=== PATIENT | female | born 1955 | race Caucasian/White ===

== ENCOUNTER 2018-02-20 18:05 | Observation (INO) ==
--- NOTE | 2018-02-20 18:20 | Emergency Department Note ---
Disposition Clinical Impression: Weakness on right side of face, Somnolence, Weakness Disposition: Admitted As Inpatient Condition: Fair Referrals: Lulu Mac MD [Primary Care Provider] - Forms: ED Satisfaction Letter Time of Disposition: 22:00 Weakness HPI - General Stated complaint: High Glucose,Tired Time Seen by Provider: 02/20/18 18:11 Source: patient, family Mode of arrival: private vehicle Limitations: no limitations Nursing Notes Reviewed: Yes Vital Signs Reviewed: Yes - History of Present Illness HPI Narrative: Patient is a 62-year-old female with a past medical history of glaucoma hypothyroid and 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 Her granddaughters checked her blood sugar at home and it was 350. She ate about 1 PM tonight and was able to keep that down. She has no nausea vomiting or diarrhea, no abdominal pain, no headache, no pain of any kind. Her main complaints are lightheadedness dizziness and unsteady gait it has been going on 1 day. She has had no sick contacts no hot or cold flashes and no rashes. She had a normal bowel movement yesterday it was not black or bloody. She is not numb or tingling anywhere. She was able to take her medications today. She does have a history of migraines but she has not had a migraine for 4 or 5 months. She does not report any recent falls or trauma. She has not hit her head. She does report a concussion that she had in May when a piece of plate glass hit her head at work. - Related Data Home Medications Medication Instructions Recorded Confirmed Levothyroxine PO DAILY 02/20/18 Allergies Allergy/AdvReac Type Severity Reaction Status Date / Time Sulfa (Sulfonamide Allergy Hives Verified 03/27/17 18:48 Antibiotics) Constitutional: Reports: weakness. 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 Absent: tenderness - Chest Chest inspection: Present: normal inspection, symmetric chest wall rise - Respiratory Respiratory exam: Present: normal lung sounds bilaterally - Cardiovascular Cardiovascular exam: Present: regular rate, normal rhythm - Abdominal Exam Abdominal exam: Present: soft, Non-Tender. Absent: distention, guarding - Neurological Exam Neurological exam: Present: oriented X3 - Expanded Neurological Exam Cranial nerves: EOM function (II, III, IV, ): Normal, facial sensation (V): Normal, facial palsy (VII): Normal, spinal accessory function (XI): Normal, tongue deviation (XII): Normal Cerebellar function: finger to nose: Normal, heel to polanco: Normal Motor strength - LUE: 5/5 Motor strength - RUE: 5/5 Motor strength - LLE: 5/5 Motor strength - RLE: 5/5 Coma Scale Eye Opening: To Voice Coma Scale Motor Response: Obeys Commands Coma Scale Verbal Response: Oriented Coma Scale Total: 14 - Psychiatric Psychiatric exam: Present: flat affect - Skin Skin exam: Present: warm, dry, intact, other (dry skin present on UE and LE) Course Course Narrative: Patient presents with a blood sugar of 350 taken at home, and seems very tired on exam. Her neurological exam was pertinent for a right sided facial droop when smiling. She has a history of Marmolejo's palsy but that was on the left side of her face. Given her somewhat somnolent presentation and concern for multiple different causes, we will do a head CT without contrast, and lab work to include CBC BMP TSH. - Reevaluation(s) Reevaluation #1: CT was negative for a bleed or any acute processes. Patient continues to be somewhat tired stating that she continues to feel dizzy and lightheaded if she sits up. Her blood work was largely normal. Suspicion for an ischemic stroke remains high so she will need to be admitted for MRI and further workup with neurology consult. Vital Signs Temperature 98.2 F 02/20/18 18:21 Pulse Rate 81 02/20/18 18:21 Respiratory Rate 16 02/20/18 18:21 Blood Pressure 146/85 02/20/18 18:21 O2 Sat by Pulse Oximetry 97 02/20/18 18:21 Temperature 98.2 F 02/20/18 18:46 Pulse Rate 65 02/20/18 21:27 Respiratory Rate 12 02/20/18 21:27 Blood Pressure 120/52 02/20/18 21:27 O2 Sat by Pulse Oximetry 97 02/20/18 21:27 Oxygen Delivery Oxygen Delivery Room Air Weakness - MDM Narrative Medical decision making narrative: Patient presented somewhat somnolent without any acute findings on CT, with largely normal lab results. Her only acute finding was a right-sided facial droop when smiling. In order to fully exclude an ischemic stroke she will need to have an MRI. Neurology has been consult. While her vitals are living largely normal within the emergency department she did have a few seconds of what may have been an irregular rhythm as witnessed by monitor technician. Repeat EKG was similar to previous, and her rhythm returned to sinus. - Medical Records Medical records reviewed: Yes I reviewed the patient's medical records. - Lab Data Lab results reviewed: Yes I reviewed the patient's lab results. Result diagrams: 02/20/18 18:58 02/20/18 18:58 Lab Results 02/20/18 02/20/18 02/20/18 Range/Units 18:58 18:58 18:58 WBC 6.3 (4.3-11.1) K/mcL RBC 5.08 H (3.82-4.97) M/mcL Hgb 14.7 (11.5-15.4) g/dL Hct 43.9 (35.3-44.9) % MCV 86.4 (83.0-100.0) fL MCH 28.9 (28.0-33.3) pg MCHC 33.5 (31.6-35.5) g/dL RDW 12.9 (11.5-14.5) % Plt Count 192 (140-400) K/mcL MPV 9.9 (9.4-12.4) fL Immature Gran % 0.6 (0-4) % Seg Neutrophils % 54.5 % Lymphocytes % 32.3 % Monocytes % 8.4 % Eosinophils % 3.6 % Basophils % 0.6 % Neutrophils # 3.5 (1.6-8.9) K/mcL Lymphocytes # 2.1 (0.6-4.6) K/mcL Monocytes # 0.5 (0.0-1.3) K/mcL Eosinophils # 0.2 (0.0-0.6) K/mcL Basophils # 0.0 (0.0-0.2) K/mcL Sodium 139 (136-145) mEq/L Potassium 3.9 (3.5-5.1) mEq/L Chloride 108 H (98-107) mEq/L Carbon Dioxide 25 (23-29) mEq/L BUN 18 (8-23) mg/dL Creatinine 0.80 (0.60-1.20) mg/dL Est GFR ( Amer) > 60 (> 60) Est GFR (Non-Af Amer) > 60 (> 60) BUN/Creatinine Ratio 23 (6-26) Glucose 239 H (70-105) mg/dL Calculated Osmolality 298 (280-300) Calcium 9.0 (8.6-10.3) mg/dL Phosphorus 2.3 L (2.7-4.5) mg/dL Magnesium 2.2 (1.6-2.6) mg/dL Total Bilirubin 0.8 (0.3-1.0) mg/dL Direct Bilirubin 0.2 (0.0-0.2) mg/dL Indirect Bilirubin 0.6 (0.0-1.2) mg/dL AST 20 (13-39) Units/L ALT 26 (7-52) Units/L Alkaline Phosphatase 75 (34-104) Units/L Serum Total Protein 6.0 L (6.4-8.9) g/dL Albumin 3.8 (3.5-5.7) g/dL Globulin 2.2 L (2.4-3.5) g/dL Albumin/Globulin Ratio 1.7 (1.1-2.2) Lipase 76 (11-82) Units/L Beta-Hydroxybutyric Acd 0.14 (0.02-0.27) mmol/L TSH 2.279 (0.340-5.600) mcIU/mL Free T4 0.88 (0.70-2.00) ng/dl Urine Color (Yellow) Urine Clarity (Clear) Urine pH (5.0-8.0) pH Units Ur Specific [place] (1.010-1.025) Urine Protein (Neg-Trace) mg/dL Urine Glucose (UA) (Normal) mg/dL Urine Ketones (Negative) mg/dL Urine Blood (Negative) Urine Nitrite (Negative) Urine Bilirubin (Negative) Urine Urobilinogen (Normal) mg/dL Ur Leukocyte Esterase (Negative) Urine Microscopic RBC (0-3) per hpf Urine Microscopic WBC (0-3) per hpf Ur Squamous Epith Cells (None-Few) per lpf Urine Bacteria (None-Few) per hpf Hyaline Casts (None-Few) per lpf Ur Culture Indicated? (NO) 02/20/18 Range/Units 19:28 WBC (4.3-11.1) K/mcL RBC (3.82-4.97) M/mcL Hgb (11.5-15.4) g/dL Hct (35.3-44.9) % MCV (83.0-100.0) fL MCH (28.0-33.3) pg MCHC (31.6-35.5) g/dL RDW (11.5-14.5) % Plt Count (140-400) K/mcL MPV (9.4-12.4) fL Immature Gran % (0-4) % Seg Neutrophils % % Lymphocytes % % Monocytes % % Eosinophils % % Basophils % % Neutrophils # (1.6-8.9) K/mcL Lymphocytes # (0.6-4.6) K/mcL Monocytes # (0.0-1.3) K/mcL Eosinophils # (0.0-0.6) K/mcL Basophils # (0.0-0.2) K/mcL Sodium (136-145) mEq/L Potassium (3.5-5.1) mEq/L Chloride (98-107) mEq/L Carbon Dioxide (23-29) mEq/L BUN (8-23) mg/dL Creatinine (0.60-1.20) mg/dL Est GFR ( Amer) (> 60) Est GFR (Non-Af Amer) (> 60) BUN/Creatinine Ratio (6-26) Glucose (70-105) mg/dL Calculated Osmolality (280-300) Calcium (8.6-10.3) mg/dL Phosphorus (2.7-4.5) mg/dL Magnesium (1.6-2.6) mg/dL Total Bilirubin (0.3-1.0) mg/dL Direct Bilirubin (0.0-0.2) mg/dL Indirect Bilirubin (0.0-1.2) mg/dL AST (13-39) Units/L ALT (7-52) Units/L Alkaline Phosphatase (34-104) Units/L Serum Total Protein (6.4-8.9) g/dL Albumin (3.5-5.7) g/dL Globulin (2.4-3.5) g/dL Albumin/Globulin Ratio (1.1-2.2) Lipase (11-82) Units/L Beta-Hydroxybutyric Acd (0.02-0.27) mmol/L TSH (0.340-5.600) mcIU/mL Free T4 (0.70-2.00) ng/dl Urine Color Yellow (Yellow) Urine Clarity Cloudy A (Clear) Urine pH 6.5 (5.0-8.0) pH Units Ur Specific [place] > 1.030 H (1.010-1.025) Urine Protein Trace (Neg-Trace) mg/dL Urine Glucose (UA) 500 H (Normal) mg/dL Urine Ketones Negative (Negative) mg/dL Urine Blood Trace H (Negative) Urine Nitrite Negative (Negative) Urine Bilirubin Negative (Negative) Urine Urobilinogen Normal (Normal) mg/dL Ur Leukocyte Esterase Moderate H (Negative) Urine Microscopic RBC 5-15 H (0-3) per hpf Urine Microscopic WBC 50-100 H (0-3) per hpf Ur Squamous Epith Cells Many H (None-Few) per lpf Urine Bacteria Few (None-Few) per hpf Hyaline Casts None Seen (None-Few) per lpf Ur Culture Indicated? NO. A (NO) - Radiology Data Radiology results reviewed: Yes I reviewed the patient's radiology results. Head CT 02/20/18 18:48 IMPRESSION: No CT evidence for acute intracranial abnormality. D/ / Boyd Green / Boyd Green Interpreting Provider: Boyd Green Chest X-Ray 02/20/18 18:58 IMPRESSION: No significant findings in the chest. D/ / Fausto Phoenix MD / Fausto Phoenix MD Interpreting Provider: Fausto Phoenix MD - EKG Data EKG attestation: Yes I reviewed and interpreted this EKG. EKG results narrative: 1916: Rate 71 bpm, rhythm sinus, left axis. MI, QT intervals WNL. No evidence of ST elevation or depression. 2125: Rate 66, rhythm sinus, left axis. Print says prolonged QT, but is 421 when calculated. No evidence of ST depression or elevation. Attestation Statement - Attestation Attestation: I, Kodak Ramsey DO, examined this patient [id number] and my medical decision-making was reviewed with Dr. Korina Lei, Resident Physician. I agree with the documented findings, disposition and treatment plan as described except to the extent set forth below. Please see my progress notes for details.
[2018-02-20] MEDS ORDERED: 0.9 % Sodium Chloride 1,000 ML IVC ONE (18:58)
[2018-02-20] MEDS ORDERED: Ondansetron 4 MG/2 ML VIAL IVP ONE (18:59)
--- NOTE | 2018-02-20 19:14 | Emergency Department Note ---
Disposition Clinical Impression: Weakness on right side of face, Somnolence, Weakness Disposition: Admitted As Inpatient Condition: Fair Referrals: Lulu Mac MD [Primary Care Provider] - Time of Disposition: 21:32 General Adult HPI - General Chief complaint: ED Weakness Stated complaint: High Glucose,Tired Time Seen by Provider: 02/20/18 18:11 Source: patient, family Limitations: no limitations - History of Present Illness Pain Scale: 0 - Related Data Home Medications Medication Instructions Recorded Confirmed Timolol Maleate 0.5% 1 drop BOTH EYES DAILY 06/20/15 03/27/17 Cyclobenzaprine [Flexeril] 10 mg PO PRN PRN 03/27/17 03/27/17 Previous Rx's Medication Instructions Recorded traMADol [Ultram] 50 mg PO Q6HR PRN #14 tablet 06/20/15 Ciprofloxacin [Cipro] 500 mg PO BID #14 tablet 03/27/17 Phenazopyridine HCl [Pyridium] 200 mg PO TID #6 tab 03/27/17 Allergies Allergy/AdvReac Type Severity Reaction Status Date / Time Sulfa (Sulfonamide Allergy Hives Verified 03/27/17 18:48 Antibiotics) Constitutional: Reports: weakness. 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 - Social History Smoking Status: 2nd Hand Smoke Exposure Smokeless Tobacco Status: No Alcohol use: Reports: none Drug use: Reports: none Physical Exam - General Limitations: no limitations General appearance: lethargic, obese, other (has difficulty keeping her eyes open) Course Vital Signs Temperature 98.2 F 02/20/18 18:21 Pulse Rate 81 02/20/18 18:21 Respiratory Rate 16 02/20/18 18:21 Blood Pressure 146/85 02/20/18 18:21 O2 Sat by Pulse Oximetry 97 02/20/18 18:21 Temperature 98.2 F 02/20/18 18:46 Pulse Rate 65 02/20/18 21:27 Respiratory Rate 12 02/20/18 21:27 Blood Pressure 120/52 02/20/18 21:27 O2 Sat by Pulse Oximetry 97 02/20/18 21:27 Oxygen Delivery Oxygen Delivery Room Air Medical Decision Making - Lab Data Result diagrams: 02/20/18 18:58 02/20/18 18:58 Lab Results 02/20/18 02/20/18 02/20/18 Range/Units 18:58 18:58 18:58 WBC 6.3 (4.3-11.1) K/mcL RBC 5.08 H (3.82-4.97) M/mcL Hgb 14.7 (11.5-15.4) g/dL Hct 43.9 (35.3-44.9) % MCV 86.4 (83.0-100.0) fL MCH 28.9 (28.0-33.3) pg MCHC 33.5 (31.6-35.5) g/dL RDW 12.9 (11.5-14.5) % Plt Count 192 (140-400) K/mcL MPV 9.9 (9.4-12.4) fL Immature Gran % 0.6 (0-4) % Seg Neutrophils % 54.5 % Lymphocytes % 32.3 % Monocytes % 8.4 % Eosinophils % 3.6 % Basophils % 0.6 % Neutrophils # 3.5 (1.6-8.9) K/mcL Lymphocytes # 2.1 (0.6-4.6) K/mcL Monocytes # 0.5 (0.0-1.3) K/mcL Eosinophils # 0.2 (0.0-0.6) K/mcL Basophils # 0.0 (0.0-0.2) K/mcL Sodium 139 (136-145) mEq/L Potassium 3.9 (3.5-5.1) mEq/L Chloride 108 H (98-107) mEq/L Carbon Dioxide 25 (23-29) mEq/L BUN 18 (8-23) mg/dL Creatinine 0.80 (0.60-1.20) mg/dL Est GFR ( Amer) > 60 (> 60) Est GFR (Non-Af Amer) > 60 (> 60) BUN/Creatinine Ratio 23 (6-26) Glucose 239 H (70-105) mg/dL Calculated Osmolality 298 (280-300) Calcium 9.0 (8.6-10.3) mg/dL Phosphorus 2.3 L (2.7-4.5) mg/dL Magnesium 2.2 (1.6-2.6) mg/dL Total Bilirubin 0.8 (0.3-1.0) mg/dL Direct Bilirubin 0.2 (0.0-0.2) mg/dL Indirect Bilirubin 0.6 (0.0-1.2) mg/dL AST 20 (13-39) Units/L ALT 26 (7-52) Units/L Alkaline Phosphatase 75 (34-104) Units/L Serum Total Protein 6.0 L (6.4-8.9) g/dL Albumin 3.8 (3.5-5.7) g/dL Globulin 2.2 L (2.4-3.5) g/dL Albumin/Globulin Ratio 1.7 (1.1-2.2) Lipase 76 (11-82) Units/L Beta-Hydroxybutyric Acd 0.14 (0.02-0.27) mmol/L TSH 2.279 (0.340-5.600) mcIU/mL Free T4 0.88 (0.70-2.00) ng/dl Urine Color (Yellow) Urine Clarity (Clear) Urine pH (5.0-8.0) pH Units Ur Specific [place] (1.010-1.025) Urine Protein (Neg-Trace) mg/dL Urine Glucose (UA) (Normal) mg/dL Urine Ketones (Negative) mg/dL Urine Blood (Negative) Urine Nitrite (Negative) Urine Bilirubin (Negative) Urine Urobilinogen (Normal) mg/dL Ur Leukocyte Esterase (Negative) Urine Microscopic RBC (0-3) per hpf Urine Microscopic WBC (0-3) per hpf Ur Squamous Epith Cells (None-Few) per lpf Urine Bacteria (None-Few) per hpf Hyaline Casts (None-Few) per lpf Ur Culture Indicated? (NO) 02/20/18 Range/Units 19:28 WBC (4.3-11.1) K/mcL RBC (3.82-4.97) M/mcL Hgb (11.5-15.4) g/dL Hct (35.3-44.9) % MCV (83.0-100.0) fL MCH (28.0-33.3) pg MCHC (31.6-35.5) g/dL RDW (11.5-14.5) % Plt Count (140-400) K/mcL MPV (9.4-12.4) fL Immature Gran % (0-4) % Seg Neutrophils % % Lymphocytes % % Monocytes % % Eosinophils % % Basophils % % Neutrophils # (1.6-8.9) K/mcL Lymphocytes # (0.6-4.6) K/mcL Monocytes # (0.0-1.3) K/mcL Eosinophils # (0.0-0.6) K/mcL Basophils # (0.0-0.2) K/mcL Sodium (136-145) mEq/L Potassium (3.5-5.1) mEq/L Chloride (98-107) mEq/L Carbon Dioxide (23-29) mEq/L BUN (8-23) mg/dL Creatinine (0.60-1.20) mg/dL Est GFR ( Amer) (> 60) Est GFR (Non-Af Amer) (> 60) BUN/Creatinine Ratio (6-26) Glucose (70-105) mg/dL Calculated Osmolality (280-300) Calcium (8.6-10.3) mg/dL Phosphorus (2.7-4.5) mg/dL Magnesium (1.6-2.6) mg/dL Total Bilirubin (0.3-1.0) mg/dL Direct Bilirubin (0.0-0.2) mg/dL Indirect Bilirubin (0.0-1.2) mg/dL AST (13-39) Units/L ALT (7-52) Units/L Alkaline Phosphatase (34-104) Units/L Serum Total Protein (6.4-8.9) g/dL Albumin (3.5-5.7) g/dL Globulin (2.4-3.5) g/dL Albumin/Globulin Ratio (1.1-2.2) Lipase (11-82) Units/L Beta-Hydroxybutyric Acd (0.02-0.27) mmol/L TSH (0.340-5.600) mcIU/mL Free T4 (0.70-2.00) ng/dl Urine Color Yellow (Yellow) Urine Clarity Cloudy A (Clear) Urine pH 6.5 (5.0-8.0) pH Units Ur Specific [place] > 1.030 H (1.010-1.025) Urine Protein Trace (Neg-Trace) mg/dL Urine Glucose (UA) 500 H (Normal) mg/dL Urine Ketones Negative (Negative) mg/dL Urine Blood Trace H (Negative) Urine Nitrite Negative (Negative) Urine Bilirubin Negative (Negative) Urine Urobilinogen Normal (Normal) mg/dL Ur Leukocyte Esterase Moderate H (Negative) Urine Microscopic RBC 5-15 H (0-3) per hpf Urine Microscopic WBC 50-100 H (0-3) per hpf Ur Squamous Epith Cells Many H (None-Few) per lpf Urine Bacteria Few (None-Few) per hpf Hyaline Casts None Seen (None-Few) per lpf Ur Culture Indicated? NO. A (NO) Attestation Statement - Attestation Attestation: I, Kodak Ramsey DO, examined this patient [id number] and my medical decision-making was reviewed with Dr. Korina Lei, Resident Physician. I agree with the documented findings, disposition and treatment plan as described except to the extent set forth below. Please see my progress notes for details. 62-year-old female presents emergency room for evaluation of somnolence and elevated glucose. Patient has had symptoms on and off over the last 24 hours. She has no specific history of stroke or diabetes according to the patient and family. She has a history of DVTs but is not currently on a blood thinners. Currently she is denying fevers chills chest pain shortness of breath headache vision changes nausea vomiting or diarrhea. Her main complaint is feeling like she just wants to sleep. Accu-Chek at home is greater than 350. Bedside point of care Accu-Chek is ordered at this time. Patient is concerning for neurologic issues versus infectious etiology. CT imaging of the head chest x- ray urinalysis along with CBC chemistry troponin and BNP and thyroid function testing along with VBG and ketones were collected this point. Single air-fluid and nausea medication will be provided. Patient does not have any visible signs of traumatic injury. Her physical exam does show some right-sided facial droop. She does have a history of Marmolejo's palsy that but that was on the left side of her face. Her pupils are equal round reactive extraocular muscles are intact. Oropharynx is patent her trachea is midline. Lungs are clear heart is regular. Abdomen is soft nontender nondistended. She has no asymmetry or swelling to lower extremities and has no pitting edema. Disposition will most likely be admission wants a full workup and treatment course have been reviewed and established here in the emergency room. We will continue to monitor closely. See detailed documentation of the physical exam, medical intervention , medical decision-making and disposition in the resident physician's note. No critical care provider the patient's treatment course at this time. [address] scan of the head. No acute signs of bleed or inflammation. Labs are unremarkable this time. Patient is still somnolent appears to be at baseline answering questions appropriately. She does not have any visible neurologic deficits outside of a slight facial asymmetry on the right side. Patient's NIH stroke scale is 1. She does not require any emergent or acute intervention and she is not currently a candidate based on the unknown time frame of the onset of the symptoms. Patient will be admitted for TIA like symptoms as well as completion of a neurologic evaluation. The remainder of her laboratory workup with concern for infectious etiology is unremarkable. Patient is otherwise clinically stable addition process to be completed. 2125 Patient was discussed with the hospitalist Dr. Brownlee. No other recommendations or concerns at this time. Neurology was contacted at the request and aspirin was given. Patient will be admitted for observation symptomatically control and neurology consultation. Patient otherwise clinical stable with no changes in his presentation this time. We will continue monitoring in emergency room until admission processes is completed repeat EKG that was requested by the hospitalist showed a QTC of 534 but was calculated by myself the QTC appears to be 421 consistent with the patient's previous EKG. The morphology and presentation appears to be identical. No other concerns or issues are noted. Patient will be admitted.
[2018-02-20 19:15] LABS: Basophils % 0.6 %; Eosinophils # 0.2 K/mcL (0.0-0.6); Eosinophils % 3.6 %; Hematocrit 43.9 % (35.3-44.9); Hemoglobin 14.7 g/dL (11.5-15.4); Immature Granulocytes % 0.6 % (0-4); Lymphocytes # 2.1 K/mcL (0.6-4.6); Lymphocytes % 32.3 %; Mean Corpuscular HGB Conc 33.5 g/dL (31.6-35.5); Mean Corpuscular Hemoglobin 28.9 pg (28.0-33.3); Mean Corpuscular Volume 86.4 fL (83.0-100.0); Mean Platelet Volume 9.9 fL (9.4-12.4); Monocytes # 0.5 K/mcL (0.0-1.3); Monocytes % 8.4 %; Neutrophils # 3.5 K/mcL (1.6-8.9); Platelet Count 192 K/mcL (140-400); Red Blood Count 5.08 M/mcL (3.82-4.97); Red Cell Distribution Width 12.9 % (11.5-14.5); Segmented Neutrophils % 54.5 %
[2018-02-20 19:42] LABS: Bilirubin,Urine Negative (Negative); Blood,Urine Trace (Negative); Clarity,Urine Cloudy (Clear); Color,Urine Yellow (Yellow); Glucose,Urine (UA) 500 mg/dL (Normal); Ketones,Urine Negative (Negative); Leukocyte Esterase,Urine Moderate (Negative); Nitrite,Urine Negative (Negative); PH,Urine 6.5 pH Units (5.0-8.0); Protein,Urine Trace mg/dL (Neg-Trace); Specific Gravity,Urine > 1.030 (1.010-1.025); Urobilinogen,Urine Normal (Normal)
[2018-02-20 19:47] LABS: Bacteria,Urine Few per hpf (None-Few); Hyaline Casts,Urine None Seen per lpf (None-Few); Squamous Epithelial Cell,Urine Many per lpf (None-Few); WBC,Urine 50-100 per hpf (0-3)
[2018-02-20 19:54] LABS: Alanine Aminotransferase 26 Units/L (7-52); Albumin 3.8 g/dL (3.5-5.7); Albumin/Globulin Ratio 1.7 (1.1-2.2); Alkaline Phosphatase 75 Units/L (34-104); Aspartate Amino Transferase 20 Units/L (13-39); BUN/Creatinine Ratio 23 (6-26); Bilirubin,Direct 0.2 mg/dL (0.0-0.2); Bilirubin,Indirect 0.6 mg/dL (0.0-1.2); Bilirubin,Total 0.8 mg/dL (0.3-1.0); Blood Urea Nitrogen 18 mg/dL (8-23); Carbon Dioxide 25 mEq/L (23-29); Chloride 108 mEq/L (98-107); Globulin 2.2 g/dL (2.4-3.5); Glucose 239 mg/dL (70-105); Lipase 76 Units/L (11-82); Magnesium 2.2 mg/dL (1.6-2.6); Osmolality,Calculated 298 (280-300); Phosphorous 2.3 mg/dL (2.7-4.5); Potassium 3.9 mEq/L (3.5-5.1); Sodium 139 mEq/L (136-145); eGFR For Non-African Americans > 60 (> 60)
[2018-02-20 20:07] LABS: Thyroid Stimulating Hormone 2.279 mcIU/mL (0.340-5.600)
[2018-02-20] MEDS ORDERED: Aspirin 325 MG TABLET PO ONE (20:55)
[2018-02-20] MEDS ORDERED: Acetaminophen 325 MG TABLET PO PRN (22:29)
[2018-02-20] MEDS ORDERED: Naloxone 0.4 MG/ML INJ IVP PRN (22:29)
[2018-02-20] MEDS ORDERED: traMADol 50 MG TABLET PO PRN (22:29)
[2018-02-20] MEDS ORDERED: Dextrose Gel 15 GM/37.5 ML TUBE PO PRN ×2 (22:31)
[2018-02-20] MEDS ORDERED: *HR* Dextrose 50 % in Water (Syg) 50 ML SYRINGE IVP PRN (22:31)
[2018-02-20] MEDS ORDERED: D5% in Water 1,000 ML IVC PRN (22:31)
--- NOTE | 2018-02-20 23:39 | Internal Med History&Physical ---
<Lucas Cooper - Last Filed: 02/20/18 23:33> Date of Encounter: 02/20/18 Time of Encounter: 23:34 Internal Medicine - H&P: HPI Chief complaint: Somnolence Admitted From: Emergency Dept Plans for Post Hospital Care: Home History of present illness: Ms. Tinsley is a 62 year old female with history of hypothyroidism, migraines, diet controlled diabetes who presents with a chief complaint of feeling tired and somnolent. Daughter states that yesterday the patient appeared to have some right-sided facial droop that is new for her. She describes it as the corner of her lip being "stuck". Prior to this she was normal. Today this facial droop is better although the daughter feels that it is still present however much improved. Today the patient states that she just felt extremely tired all day. She states that she checked her blood sugar today and it was around 350. She reports being told that she was diabetic previously and had been on metformin however she states her PCP stopped this due to diarrhea and she is currently attempting to control her diabetes with diet. She states that she occasionally checks her blood sugar and is usually in the 200s. She also reports a mild headache behind her left eye. She states that this is the location that she usually gets her migraines and but this feels different than her usual migraines. She states she usually aborts her migraines with tramadol. She denies any fever, chills, chest pain, shortness of breath, vision changes, abdominal pain, nausea, vomiting, diarrhea, dysuria, lower extremity swelling, weakness, numbness, tingling. Past Med Surg Social Fam HX - Past Medical History Medical history: non-contributory Additional medical history: bells palsy, glaucoma Psychiatric history: anxiety - Past Surgical History Surgical History: non-contributory, Additional surgical history: tubal , glaucoma sx - Social History Smoking Status: 2nd Hand Smoke Exposure Smokeless Tobacco Status: No Alcohol use: none Drug use: none - Family History Mother Living Status: Brother Hx Family Cardiac Disorders: Yes ( 6 brothers have heart disease) Internal Medicine - H&P: Meds Levothyroxine PO DAILY 02/20/18 [History] Timolol Maleate 0.5% [Timolol Maleate 0.5%] 1 drop BOTH EYES HS 02/20/18 [ History] 3 Allergy/AdvReac Type Severity Reaction Status Date / Time Sulfa (Sulfonamide Allergy Hives Verified 03/27/17 18:48 Antibiotics) All Systems PM: A 10-system review of systems was performed and is negative for pertinent findings except as documented above in the HPI. - Constitutional Constitutional: lethargy, no chills, no fever(s) - EENT Eyes: no change in vision Nose, mouth and throat: no sinus pain, no sinus pressure, no sore throat - Cardiovascular Cardiovascular ROS IM: no chest pain, no dyspnea, no irregular heart rhythm, no lightheadedness, no orthopnea - Respiratory Respiratory: no cough, no dyspnea, no hemoptysis - Gastrointestinal Gastrointestinal: no abdominal pain, no diarrhea, no nausea, no vomiting - Genitourinary Genitourinary: no dysuria - Musculoskeletal Musculoskeletal ROS IM: no numbness, no tingling - Integumentary Integumentary IM: no erythema, no rash - Neurological Neurological ROS: headache(s), other (facial droop), no behavioral changes, no confusion, no dizziness, no focal weakness, no loss of vision, no memory loss, no other visual disturbances - Psychiatric Psychiatric: no anxiety, no confusion, no depression - Endocrine Endocrine IM: no polydipsia, no polyuria - Hematologic/Lymphatic Hematologic/Lymphatic: no easy bleeding, no easy bruising - Allergic/Immunologic Allergic/Immunologic: no tongue swelling, no throat swelling - Constitutional Vitals: Temp Pulse Resp BP Pulse Ox 97.8 F 60 16 121/68 96 02/20/18 22:38 02/20/18 22:38 02/20/18 22:38 02/20/18 22:38 02/20/18 22:38 General appearance: Present: A&O X 3, no acute distress Exam: SLightly lethargic but is easily arousable and able to carry on a full conversation without difficulty. - Head Head exam: Present: atraumatic, normal inspection, normocephalic - Eye Eye exam: Present: EOMI, PERRL Pupils: Present: PERRL - ENT ENT exam: Present: mucous membranes moist, normal oropharynx - Neck Neck exam general surgery: Present: full ROM. Absent: nuchal rigidity - Respiratory Respiratory exam: Present: CTAB. Absent: rales, rhonchi, wheezes, tachypnea - Cardiovascular Cardiovascular exam: Present: RRR. Absent: diastolic murmur, irregular rhythm, systolic murmur - GI/Abdominal GI/Abdominal exam: Present: normal bowel sounds, soft. Absent: distended, hepatomegaly, tenderness - Extremities Exam Extremities exam: Present: warm, radial pulses palpable and symmetrical. Absent : pedal edema, tenderness - Neurological Exam Neurological exam: Present: alert, CN II-XII intact, oriented X3, reflexes normal, no focal deficits, strengths equal and symetr throughout. Absent: motor sensory deficit, pronater drift, facial droop (I did not appreciate any facial droop however daughter feels patient has slight facial droop), speech deficit - Psychiatric Psychiatric exam: Present: normal affect, normal mood - Skin Skin exam: Present: dry, intact, warm Internal Med - H&P Results - Labs CBC & Chem 7: 02/20/18 18:58 02/20/18 18:58 - Assessment and plan (1) Somnolence Current Visit: Yes Status: Acute Assessment and plan: Patient reports feeling somewhat tired but is easily arousable and able to carry on a full conversation. She is alert and oriented 3 and is able to give a complete history. Facial droop is also reported yesterday per family and they feel this is improving. I do not appreciate any focal neurologic deficits however given her symptoms concern for neurologic process including TIA/CVA. We will place the patient on telemetry, check echo, carotid duplex, brain MRI. Patient was loaded with 325 mg aspirin, will continue 81 mg aspirin daily. On previous lipid panel patient was noted to have an elevated LDL and a decreased HDL, will start statin and check lipid panel in the morning. Neurology consult pending. (2) Diabetes mellitus Current Visit: No Status: Chronic Assessment and plan: Patient reports being told she is prediabetic and states that this is controlled with diet. She had been on metformin in the past but this was discontinued due to diarrhea. At home the patient reports she had a blood sugar of 350 today. Blood sugar was 239 upon arrival. I suspect that the patient has uncontrolled diabetes. We will place on low-dose sliding scale while in the hospital and check a hemoglobin A1c in the morning. Qualifiers: Diabetes mellitus type: type 2 Diabetes mellitus skilled nursing insulin use: without skilled nursing use Diabetes mellitus complication status: without complication Qualified Code(s): E11.9 - Type 2 diabetes mellitus without complications (3) Hypothyroidism Current Visit: Yes Status: Acute Assessment and plan: Patient on levothyroxine at home, unsure of dose. TSH and free T4 within normal limits. Levothyroxine dose will need to be confirmed with pharmacy in the morning and restarted. Qualifiers: Hypothyroidism type: unspecified Qualified Code(s): E03.9 - Hypothyroidism , unspecified (4) DVT prophylaxis Current Visit: No Status: Acute Assessment and plan: Lovenox 40 mg subcutaneous daily. (5) Migraine Current Visit: Yes Status: Chronic Assessment and plan: Patient reports history of migraines and presently has a mild headache behind her left eye which she states is where she normally gets her migraines however she does not feel like this is a migraine. She uses tramadol at home to abort her migraines. This is been made available to her on a when necessary basis. Complex migraine could explain the patient's symptoms however will rule out CVA as discussed above. Neurology consult pending. Qualifiers: Migraine type: with aura Status migrainosus presence: without status migrainosus Intractability: not intractable Qualified Code(s): G43.109 - Migraine with aura, not intractable, without status migrainosus - Time Spent With Patient Total time spent is greater than 50% in coordination of care (as documented) at patient's floor/unit and/or counseling patient: <Matias Brownlee - Last Filed: 02/21/18 08:40> Date of Encounter: 02/21/18 Internal Medicine - H&P: HPI History of present illness: Ms. Tinsley is a 62 year old female All Systems PM: A 10-system review of systems was performed and is negative for pertinent findings except as documented above in the HPI. - Constitutional Vitals: Temp Pulse Resp BP Pulse Ox 97.5 F L 69 18 101/65 95 02/21/18 06:57 02/21/18 06:57 02/21/18 06:57 02/21/18 06:57 02/21/18 06:57 Internal Med - H&P Results - Labs CBC & Chem 7: 02/21/18 04:34 02/21/18 04:34 Labs: Short CBC 02/21/18 Range/Units 04:34 WBC 6.6 (4.3-11.1) K/mcL Hgb 13.5 (11.5-15.4) g/dL Hct 39.8 (35.3-44.9) % Plt Count 182 (140-400) K/mcL Neutrophils # 3.3 (1.6-8.9) K/mcL BMP 02/21/18 04:34 Sodium 141 Potassium 3.8 Chloride 108 H Carbon Dioxide 26 BUN 13 Creatinine 0.63 Glucose 126 H Calcium 8.8 - Assessment and plan (1) DVT prophylaxis Current Visit: No Status: Acute (2) Diabetes mellitus Current Visit: No Status: Chronic Qualifiers: Diabetes mellitus type: type 2 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 skilled 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 use Diabetes mellitus complication status: without complication Qualified Code(s): E11.9 - Type 2 diabetes mellitus without complications (3) Somnolence Current Visit: Yes Status: Acute (4) Hypothyroidism Current Visit: Yes Status: Acute Qualifiers: Hypothyroidism type: unspecified Qualified Code(s): E03.9 - Hypothyroidism , unspecified (5) Migraine Current Visit: Yes Status: Chronic Qualifiers: Migraine type: with aura Status migrainosus presence: without status migrainosus Intractability: not intractable Qualified Code(s): G43.109 - Migraine with aura, not intractable, without status migrainosus - Time Spent With Patient Total time spent is greater than 50% in coordination of care (as documented) at patient's floor/unit and/or counseling patient: - Attending Attestation Patient seen and examined on 02/21/18. Case discussed with resident. Agree with assessment and plan.
[2018-02-21] MEDS: Insulin LISPRO 300 UNITS/3 ML VIAL SQ SCH ×5 (01:30→21:17)
[2018-02-21] MEDS ORDERED: Naloxone 0.4 MG/ML INJ IVP PRN ×2 (03:19→03:21)
[2018-02-21 05:17] LABS: Basophils % 0.6 %; Eosinophils # 0.3 K/mcL (0.0-0.6); Eosinophils % 4.1 %; Hematocrit 39.8 % (35.3-44.9); Hemoglobin 13.5 g/dL (11.5-15.4); Immature Granulocytes % 0.5 % (0-4); Lymphocytes # 2.6 K/mcL (0.6-4.6); Lymphocytes % 38.6 %; Mean Corpuscular HGB Conc 33.9 g/dL (31.6-35.5); Mean Corpuscular Hemoglobin 29.1 pg (28.0-33.3); Mean Corpuscular Volume 85.8 fL (83.0-100.0); Monocytes # 0.5 K/mcL (0.0-1.3); Monocytes % 6.8 %; Neutrophils # 3.3 K/mcL (1.6-8.9); Platelet Count 182 K/mcL (140-400); Red Blood Count 4.64 M/mcL (3.82-4.97); Red Cell Distribution Width 13.2 % (11.5-14.5); Segmented Neutrophils % 49.4 %
[2018-02-21 05:34] LABS: BUN/Creatinine Ratio 21 (6-26); Blood Urea Nitrogen 13 mg/dL (8-23); Calcium 8.8 mg/dL (8.6-10.3); Carbon Dioxide 26 mEq/L (23-29); Chloride 108 mEq/L (98-107); Chol/HDL Ratio 5.7 (0-4.9); Cholesterol 189 mg/dL (< 200); Glucose 126 mg/dL (70-105); HDL Cholesterol 33 mg/dL (40-59); LDL Cholesterol,Calculated 127 mg/dL (0-99); Magnesium 2.1 mg/dL (1.6-2.6); Osmolality,Calculated 294 (280-300); Potassium 3.8 mEq/L (3.5-5.1); Sodium 141 mEq/L (136-145); Triglycerides 144 mg/dL (< 150); eGFR For Non-African Americans > 60 (> 60)
[2018-02-21] MEDS: *HR* Enoxaparin 40 MG/0.4 ML SYRINGE SQ SCH (06:10)
[2018-02-21 07:04] LABS: Estimated Average Glucose 174 mg/dl; Hemoglobin A1C 7.7 %
[2018-02-21] MEDS: Aspirin 81 MG TAB.CHEW PO SCH (08:53)
--- NOTE | 2018-02-21 09:49 | Neurology - Consult Note ---
<KikoVladimir norman N - Last Filed: 02/21/18 09:35> Date of Encounter: 02/21/18 Time of Encounter: 09:36 Assessment and Plan (1) Weakness on right side of face Status: Acute Patient was admitted to the hospital with concerns of a possible TIA as records indicate there was a transient right sided facial droop. Patient denies any history of drooping, stating that her only symptoms were increased somnolence and mental fatigue that have resolved. She was admitted and an inpatient stroke work up was initiated. - It is possible that the patient's symptoms are attributable to a TIA; however , a complex migraine can not be excluded - Will follow up with MRI, carotid dopplers, and echo - Recommend continuing 81mg aspirin and 40mg atorvastatin as outpatient - Recommend f/u with PCP for diabetes management as patient's A1c was 7.7 (2) Somnolence Status: Acute Patient reports a one day history of increased fatigue and daytime somnolence This was acute and has not occured before Blood glucose was 350 during time of event, which patient states is markedly high for her and attributes it as the cause of her symptoms. Has resolved and patient feels improved today. TSH and free T4 within normal limits. It is possible these symptoms may be secondary to a TIA vs. complex migraine. Will follow up with stroke workup and recommend ASA, statin, and diabetes management as outpatient to reduce risk of future cerebrovascular events. (3) Migraine Status: Chronic Patient has a history of migraines Denies any history of complex migraines Had a slight frontal headache yesterday, but that has resolved and she states that it was not as severe as her migraines (4) Hyperlipidemia Status: Acute elevated LDL initiate statin therapy to reduce risk of TIA/stroke (5) Diabetes mellitus Status: Chronic Patient was previously on metformin approximately one year ago. Metformin discontinued due to adverse reaction of diarrhea. Has been managed with diet. A1c 7.7 Recommend f/u with PCP for diabetes management (6) DVT prophylaxis Status: Acute Patient has history of thrombophlebitis with previous DVTs from oral contraceptive pill use Positive family history of DVTs and PEs, with one sibling being diagnosed with Factor V Leiden mutation Patient states she does not have Factor V mutation, but can not recall what she was previously diagnosed with lovenox 40 SubQ History of Present Illness Chief complaint: Possible TIA HPI: Ms. Tinsley is a 62 year old female who was admitted to [facility] for possible TIA like symptoms. History was collected from the patient, she states that the previous day she woke up feeling increasingly tired and had trouble staying awake. She also felt "foggy" and had trouble with cognition. These symptoms have resolved since the episode yesterday. When the patient had these symptoms she checked her blood glucose level and it was at 350, which the patient states is markedly above her normal readings. She is a known diabetic but is managing her diabetes with diet. She also has a history of migraines, and reported a mild headache yesterday, but it was far lower in severity than her usual migraines. The patient denies noticing any facial droop, slurred speech, confusion, vision changes, weakness, numbness, or parasthesias at any time. She also denies any recent illnesses, fevers, chills, chest pain, SOB, abdominal pain, or diarrhea. Today she states that all of her symptoms of fogginess and feeling tired have resolved. Past Med Surg Social Fam HX - Past Medical History Medical history: non-contributory Additional medical history: bells palsy, glaucoma Psychiatric history: anxiety - Past Surgical History Surgical History: non-contributory, Additional surgical history: tubal , glaucoma sx - Social History Smoking Status: 2nd Hand Smoke Exposure Smokeless Tobacco Status: No Alcohol use: none Drug use: none - Family History Mother Living Status: Brother Hx Family Cardiac Disorders: Yes ( 6 brothers have heart disease) Medications and Allergies Levothyroxine Sodium [Tirosint] 25 mcg PO DAILY 02/20/18 [History] Timolol Maleate 0.5% 1 drop BOTH EYES HS 02/20/18 [History] Aspirin 81 mg PO DAILY #30 tab.chew 02/22/18 [Rx] Atorvastatin [Lipitor] 40 mg PO HS #30 tablet 02/22/18 [Rx] Nitrofurantoin (BID) [Macrobid] 100 mg PO BIDWM #12 capsule 02/22/18 [Rx] metFORMIN [Glucophage] 500 mg PO BIDWM #60 tablet 02/22/18 [Rx] 3 Allergy/AdvReac Type Severity Reaction Status Date / Time Sulfa (Sulfonamide Allergy Hives Verified 02/21/18 15:42 Antibiotics) All Systems: The remainder of the systems were reviewed and are negative - Constitutional Constitutional ROS IM: as per HPI Physical Examination - Vital Signs Vital Signs: Initial Vital Signs Temp Pulse Resp BP Pulse Ox 98.2 F 81 16 146/85 97 02/20/18 18:21 02/20/18 18:21 02/20/18 18:21 02/20/18 18:21 02/20/18 18:21 - Exam Exam: General: Resting comfortably in bed, no acute distress Heart: regular rate and rhythm, no murmurs Lungs: clear to auscultation bilaterally Abdomen: positive bowel sounds, soft nontender Neurological: Cranial Nerves: II-XII grossly intact. no facial droop noted. strength and sensation is equal bilaterally Upper Extremities: Sensation intact to light touch bilaterally. Strength is 5/5 throughout bilaterally. Biceps reflex 2+ and symmetric. No pronator drift. No dysdiadochokinesia. Finger to nose normal. Lower Extremities: Sensation intact to light touch bilaterally. Strength is 5/5 throughout bilaterally. Patellar reflex is 2+ and symmetric. Normal heel to pol[place]. Results - Laboratory Findings CBC and BMP: 02/21/18 04:34 02/21/18 04:34 Abnormal lab findings: Abnormal lab results Chloride 108 mEq/L (98-107) H 02/21/18 04:34 Glucose 126 mg/dL (70-105) H 02/21/18 04:34 POC Glucose 115 mg/dL (70-99) H 02/20/18 22:55 Hemoglobin A1c 7.7 % (-5.6) H 02/21/18 04:34 Phosphorus 2.3 mg/dL (2.7-4.5) L 02/20/18 18:58 Serum Total Protein 6.0 g/dL (6.4-8.9) L 02/20/18 18:58 Globulin 2.2 g/dL (2.4-3.5) L 02/20/18 18:58 LDL Cholesterol, Calc 127 mg/dL (0-99) H 02/21/18 04:34 HDL Cholesterol 33 mg/dL (40-59) L 02/21/18 04:34 Cholesterol/HDL Ratio 5.7 (0-4.9) H 02/21/18 04:34 Urine Clarity Cloudy (Clear) A 09/27/18 19:28 Ur Specific [place] > 1.030 (1.010-1.025) H 02/20/18 19:28 Urine Glucose (UA) 500 mg/dL (Normal) H 02/20/18 19:28 Urine Blood Trace (Negative) H 02/20/18 19:28 Ur Leukocyte Esterase Moderate (Negative) H 02/20/18 19:28 Urine Microscopic RBC 5-15 per hpf (0-3) H 02/20/18 19:28 Urine Microscopic WBC 50-100 per hpf (0-3) H 02/20/18 19:28 Ur Squamous Epith Cells Many per lpf (None-Few) H 02/20/18 19:28 Ur Culture Indicated? NO. (NO) A 02/20/18 19:28 Consult Discharge Plan - Plan Instructions: Diabetes Mellitus Type 2 in Adults (DC), Basic Carbohydrate Counting (DC), Meal Planning with the Plate Model (DC) Additional Instructions: Your medications were called into [facility]. Follow-up appointments: If there is not an appointment listed below, please call your physician and schedule a follow-up appointment. If you have congestive heart failure and your symptoms return, make an appointment with your physician. Medication List: Carry an up to date list of medications you are taking at all time. We have given you an updated medication list including any new medications that you have been prescribed. Please provide that list to your primary provider Symptoms: If your condition changes or you experience any of the following symptoms, notify your physician immediately: Unusual or worsening pain, fever, persistent nausea and vomiting, bleeding, increase in swelling (especially in your legs), sudden weight gain, extreme dizziness, chest pain, increased drainage or redness from a wound or incision. Go to the emergency department if you experience a problem with breathing. Weights: If you have a history of swelling or shortness of breath, weigh yourself daily and notify your physician if you have a weight gain of two or more pounds in one day or 5 or more pounds in a week. If you experience any of the warning signs for stroke: Sudden numbness or weakness of the face, arm or leg; especially on one side of the body, sudden confusion, trouble speaking or understanding, sudden trouble seeing in one or both eyes, sudden trouble walking, dizziness, loss of balance or coordination, sudden sever headache with no cause; Call 911 or go to the emergency room. Stroke is a medical emergency. Some risk factors for stroke: Age, cigarette smoking, diabetes, excessive alcohol consumption, family history , high blood pressure, overweight, physical inactivity, prior stroke, heart attack, diagnosis of carotid artery stenosis or other artery disease. If you smoke, STOP: Smoking or tobacco use significantly increases your risk of heart and lung disease. Your chance of disease greatly increases if you continue to smoke. For more information, call the [place] tobacco quit line for smoking cessation - ( ) Referrals: Lulu Mac MD [Primary Care Provider] - (Please call for a follow up appointment with in 1-2 weeks of discharge. You were discharged on a weekend so you will need to call on Saturday. ) Prescriptions: Aspirin 81 mg PO DAILY #30 tab.chew Atorvastatin [Lipitor] 40 mg PO HS #30 tablet metFORMIN [Glucophage] 500 mg PO BIDWM #60 tablet Nitrofurantoin (BID) [Macrobid] 100 mg PO BIDWM #12 capsule <Kristen Cho I - Last Filed: 02/25/18 16:39> Date of Encounter: 02/21/18 Assessment and Plan (1) Migraine Status: Chronic Pt was seen and examined, my medical decision was reviewed with the Resident Physician, I agree with the documented findings, disposition and treatment plas as described except to the extent set forth below On my formal neurological examination I did not see any significant abnormalities. GENERAL: Comfortable in no acute distress HEENT: Normal LUNGS: CTA HEART: RRR, S1 S2 Audible, no murmur EXTREMITIES: No Pedal edema. DETAILED NEUROLOGICAL EXAMINATION: MENTAL STATUS: Oriented to person, place, date and situation. Memory: knows the President, Aware of recent events Recent Memory Intact Cranial Nerve Examination: CN - II: Visual Acuity, Field of Vision Normal, Fundus examination: No disk edema, Pupils- size shape reaction to light and accommodation: All normal. CN III, IV, : External ocular movements were intact, Pupils were reactive, Nodrooping of the eyelids CN V: Sensation over the face to light touch and pinprick all normal. Corneal reflexes not tested, jaw jerk normal. CN VII: No facial asymmetry, no flattening of nasolabial folds, no difficulty in closing the eyes, no loss of forehead wrinkles, no difficulty in eye-closure, frowning raising eyebrows. CNVIII: No significant hearing loss CN IX, X: Uvula centralized not deviated, Gag reflex: Not tested CN X1: Sternocleidomastoid, trapezius, normal or evidence of any weakness. CN X11: No Dysarthria, no wasting or fibrilation f tongue muscles, no deviation, tongue muscle strength normal. Motor examination: No hypertrophy, tone was normal, power grade 0-5 Upper limbs Proximal- No difficulty in lifting the arms above the head. Distal- No weakness in distal muscles On formal testing 5/5 all over Lower limbs On formal testing 5/5 all over Coordination: [id number] normal. Target pursuit normal finger tapping normal, Rapid alternating moment of wrist normal Sensory system: Superficial sensations- Touch normal. Pain- Pinprick, Temperature all normal, Deep sensation normal, Joint position sense normal. Cortical sensation, Tactile discrimination, localization and extinction all normal. Deep tendon reflexes. Symmetrical bilateral, No evidence of Babinski. No sign of meningeal irritation Gait Examination: Deferred suspect s likely a complex migraine, stroke workup is in progress if all negative patient could be discharged from neurology standpoint Kristen Cho MD Qualifiers: Migraine type: with aura Status migrainosus presence: without status migrainosus Intractability: not intractable Qualified Code(s): G43.109 - Migraine with aura, not intractable, without status migrainosus History of Present Illness HPI: Ms. Tinsley is a 62 year old female All Systems: The remainder of the systems were reviewed and are negative Physical Examination - Vital Signs Vital Signs: Initial Vital Signs Temp Pulse Resp BP Pulse Ox 98.2 F 81 16 146/85 97 02/20/18 18:21 02/20/18 18:21 02/20/18 18:21 02/20/18 18:21 02/20/18 18:21 Results - Laboratory Findings CBC and BMP: 02/21/18 04:34 02/21/18 04:34 Abnormal lab findings: Abnormal lab results Chloride 108 mEq/L (98-107) H 02/21/18 04:34 Glucose 126 mg/dL (70-105) H 02/21/18 04:34 POC Glucose 193 mg/dL (70-99) H 02/21/18 20:31 Hemoglobin A1c 7.7 % (-5.6) H 02/21/18 04:34 Phosphorus 2.3 mg/dL (2.7-4.5) L 02/20/18 18:58 Serum Total Protein 6.0 g/dL (6.4-8.9) L 02/20/18 18:58 Globulin 2.2 g/dL (2.4-3.5) L 02/20/18 18:58 LDL Cholesterol, Calc 127 mg/dL (0-99) H 02/21/18 04:34 HDL Cholesterol 33 mg/dL (40-59) L 02/21/18 04:34 Cholesterol/HDL Ratio 5.7 (0-4.9) H 02/21/18 04:34 Urine Clarity Cloudy (Clear) A 02/20/18 19:28 Ur Specific [place] > 1.030 (1.010-1.025) H 02/20/18 19:28 Urine Glucose (UA) 500 mg/dL (Normal) H 02/20/18 19:28 Urine Blood Trace (Negative) H 02/20/18 19:28 Ur Leukocyte Esterase Moderate (Negative) H 02/20/18 19:28 Urine Microscopic RBC 5-15 per hpf (0-3) H 02/20/18 19:28 Urine Microscopic WBC 50-100 per hpf (0-3) H 02/20/18 19:28 Ur Squamous Epith Cells Many per lpf (None-Few) H 02/20/18 19:28 Ur Culture Indicated? NO. (NO) A 02/20/18 19:28
--- NOTE | 2018-02-21 09:49 | Internal Med Progress Note ---
Hospitalist Progress Note - Encounter Date of Encounter: 02/21/18 Time of Encounter: 09:45 - Subjective Interval History: Patient seen and evaluated at bedside she reports that she stills feels tired, which she describes as generalized weakness. Denies focal weakness or changes in her speech, but reports that she was told in the ER and family member that yesterday she had droopiness of her right labial fold. - Exam Vitals: Temp Pulse Resp BP Pulse Ox 97.5 F L 69 18 101/65 95 02/21/18 06:57 02/21/18 06:57 02/21/18 06:57 02/21/18 06:57 02/21/18 06:57 Exam: General: Patient is alert, oriented x4, no acute distress. Head: atraumatic, normocephalic, Eye: normal appearance, PERRL, no scleral icterus, no conjunctival injection ENT: mucous membranes moist, normal external ear exam Neck: normal inspection, trachea midline, full ROM, no carotid bruits Respiratory: Clear to auscultation bilaterally, no wheezing, rales or crackles. Cardiovascular: RRR, normal s1 and s2, No rubs, gallops, or murmors. Abdomen: Obese, Bowel sounds present normoactive x-4 quadrants. Abdomen is soft , nondistended. No guarding or rebound. Musculoskeletal: Spontaneously moving all extremities. no edema, no calf tenderness Skin: warm, dry, intact. Neuro: Alert and oriented x4. Sensation light touch intact. Cranial nerves 2- 12 is intact. Not aphasic, rapid hand movements intact, [id number] intact, Psych: Patient's affect is normal - Assessment and Plan (1) Weakness on right side of face Current Visit: Yes Status: Resolved Assessment and Plan: Associated with Generalized weakness plus righ labial fold droop. stroke being r /o as patient with multiple risks factors for increase risk of ischemic event. Plan Started on Aspirin and atorvastatin PT/OT consult BP has been running in the low 100s, will start patient on D5NS@75msl/hr for at least 24 hours. Neurologist has been consulted, will follow recommendations MRI of the brain ordered. Pending TTE and carotid dupplex ordered, (2) Somnolence Current Visit: Yes Status: Resolved Assessment and Plan: (3) Diabetes mellitus Current Visit: No Status: Chronic Assessment and Plan: Patient on No hypoglycemic agents in the outpatient settings. Plan Continue Lispro Sliding scale Will start patient on a low dose of long acting insulin Accu-checks AC/HS (4) Hypothyroidism Current Visit: Yes Status: Acute Assessment and Plan: Will resume patient's home medication. (5) Migraine Current Visit: Yes Status: Chronic (6) DVT prophylaxis Current Visit: No Status: Acute Assessment and Plan: On Enoxaparin 40mg?SubQ daily for DVT prophylaxis (7) UTI (urinary tract infection) Current Visit: Yes Status: Acute Assessment and Plan: No dysuria, urgency or frequency. Plan Will treat patient empirically with Nitrofurantoin 100mg/PO BID. Due to patient symptoms of generalized weakness, plus somnolence of unclear etiology. - Summary of Assessment and Plan Summary of Assessment and Plan: Patient to remain in the hospital pending MRI of the brain. Possible discharge tomorrow. - Time Spent with Patient Total time spent is greater than 50% in coordination of care (as documented) at patient's floor/unit and/or counseling patient: 25 - 35 minutes Plan of Care Discussed with: patient (family and the nurse.) Internal Medicine: Result - Labs CBC & Chem 7: 02/21/18 04:34 02/21/18 04:34 Labs: Short CBC 02/21/18 Range/Units 04:34 WBC 6.6 (4.3-11.1) K/mcL Hgb 13.5 (11.5-15.4) g/dL Hct 39.8 (35.3-44.9) % Plt Count 182 (140-400) K/mcL Neutrophils # 3.3 (1.6-8.9) K/mcL BMP 02/21/18 04:34 Sodium 141 Potassium 3.8 Chloride 108 H Carbon Dioxide 26 BUN 13 Creatinine 0.63 Glucose 126 H Calcium 8.8 Consult Discharge Plan - Plan Referrals: Lulu Mac MD [Primary Care Provider] - (3) Diabetes mellitus Qualifiers: Diabetes mellitus type: type 2 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 mellitus 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 supervisor insulin use: without 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 supervisor use Diabetes mellitus complication status: without complication Qualified Code(s): E11.9 - Type 2 diabetes mellitus without complications (4) Hypothyroidism Qualifiers: Hypothyroidism type: unspecified Qualified Code(s): E03.9 - Hypothyroidism, unspecified (5) Migraine Qualifiers: Migraine type: with aura Status migrainosus presence: without status migrainosus Intractability: not intractable Qualified Code(s): G43.109 - Migraine with aura, not intractable, without status migrainosus (7) UTI (urinary tract infection) Qualifiers: Urinary tract infection type: site unspecified Hematuria presence: without hematuria Qualified Code(s): N39.0 - Urinary tract infection, site not specified
[2018-02-21] MEDS ORDERED: D5% in 0.9% NACL 1,000 ML IVC SCH (10:00)
[2018-02-21] MEDS: 0.9 % Sodium Chloride 1,000 ML IVC SCH (15:43)
[2018-02-21] MEDS: Nitrofurantoin (BID) 100 MG CAPSULE PO SCH (16:52)
[2018-02-21] MEDS ORDERED: Ibuprofen 400 MG TABLET PO ONE (20:24)
[2018-02-21] MEDS ORDERED: Insulin DETEMIR 100 UNIT/ML X5UNITS SQ SCH (21:00)
[2018-02-22] MEDS: *HR* Enoxaparin 40 MG/0.4 ML SYRINGE SQ SCH (06:00)
[2018-02-22] MEDS ORDERED: Levothyroxine 25 MCG TABLET PO SCH (06:30)
[2018-02-22 06:40] VITALS: BP 98/64
[2018-02-22] MEDS: 0.9 % Sodium Chloride 1,000 ML IVC SCH (07:16)
[2018-02-22] MEDS: Aspirin 81 MG TAB.CHEW PO SCH (08:45)
[2018-02-22] MEDS: Nitrofurantoin (BID) 100 MG CAPSULE PO SCH (08:45)
[2018-02-22] MEDS: Insulin LISPRO 300 UNITS/3 ML VIAL SQ SCH (08:45)
--- NOTE | 2018-02-22 09:39 | Discharge Summary ---
- NOTES TO OUTPATIENT PROVIDER Notes to Outpatient Provider: f/u with PCP within a week. Date of Encounter: 02/22/18 Time of Encounter: 09:37 - Discharge Diagnosis (1) DVT prophylaxis Priority: Primary Status: Acute (2) Diabetes mellitus Priority: Primary Status: Acute Qualifiers: Diabetes mellitus type: type 2 Diabetes mellitus chcf insulin use: without chcf use Diabetes mellitus complication status: without complication Qualified Code(s): E11.9 - Type 2 diabetes mellitus without complications (3) Weakness on right side of face Priority: Primary Status: Resolved (4) Somnolence Priority: Primary Status: Resolved (5) Hypothyroidism Priority: Secondary Status: Chronic Qualifiers: Hypothyroidism type: unspecified Qualified Code(s): E03.9 - Hypothyroidism , unspecified (6) Migraine Priority: Secondary Status: Chronic Qualifiers: Migraine type: with aura Status migrainosus presence: without status migrainosus Intractability: not intractable Qualified Code(s): G43.109 - Migraine with aura, not intractable, without status migrainosus (7) UTI (urinary tract infection) Priority: Primary Status: Suspected Qualifiers: Urinary tract infection type: site unspecified Hematuria presence: without hematuria Qualified Code(s): N39.0 - Urinary tract infection, site not specified Hospital course: Ms. Tinsley is a 62 year old female with history of hypothyroidism, migraines, diet controlled diabetes who presents with a chief complaint of feeling tired and somnolent. Daughter states that yesterday the patient appeared to have some right-sided facial droop that is new for her. She describes it as the corner of her lip being "stuck". Prior to this she was normal. Today this facial droop is better although the daughter feels that it is still present however much improved. Today the patient states that she just felt extremely tired all day. She states that she checked her blood sugar today and it was around 350. She reports being told that she was diabetic previously and had been on metformin however she states her PCP stopped this due to diarrhea and she is currently attempting to control her diabetes with diet. She states that she occasionally checks her blood sugar and is usually in the 200s. She also reports a mild headache behind her left eye. She states that this is the location that she usually gets her migraines and but this feels different than her usual migraines. She states she usually aborts her migraines with tramadol. She denies any fever, chills, chest pain, shortness of breath, vision changes, abdominal pain, nausea, vomiting, diarrhea, dysuria, lower extremity swelling, weakness, numbness, tingling. The brain MRI revealed no acute cerebral infarct. Echocardiogram essentially normal without thrombosis. Telemetry showed a normal sinus rhythm, no atrial fibrillation. Carotid Doppler showed a normal results. However, patient was found having hyperglycemia, hemoglobin A1c 7.7, she was placed on metformin, she was instructed to check blood glucose at least once a day. Daily Aspirin and a statin were also started. She was instructed to follow-up with PCP for routine management of comorbidities. Discharge discussed with: patient Time spent discussing smoking cessation with patient: more than 10 minutes - Time Spent with Patient Total time spent providing and/or coordinating discharge services: Greater than 30 minutes - Discharge Medications Prescriptions: Aspirin 81 mg PO DAILY #30 tab.chew Atorvastatin [Lipitor] 40 mg PO HS #30 tablet metFORMIN [Glucophage] 500 mg PO BIDWM #60 tablet Nitrofurantoin (BID) [Macrobid] 100 mg PO BIDWM #12 capsule Home Medications: Levothyroxine Sodium [Tirosint] 25 mcg PO DAILY 02/20/18 [History] Timolol Maleate 0.5% 1 drop BOTH EYES HS 02/20/18 [History] Aspirin 81 mg PO DAILY #30 tab.chew 02/22/18 [Rx] Atorvastatin [Lipitor] 40 mg PO HS #30 tablet 02/22/18 [Rx] Nitrofurantoin (BID) [Macrobid] 100 mg PO BIDWM #12 capsule 02/22/18 [Rx] metFORMIN [Glucophage] 500 mg PO BIDWM #60 tablet 02/22/18 [Rx] Allergies/Adverse Reactions: 3 Allergy/AdvReac Type Severity Reaction Status Date / Time Sulfa (Sulfonamide Allergy Hives Verified 02/21/18 15:42 Antibiotics) Date of admission: 02/20/18 21:31 Primary care physician: Lulu Mac MD Anticipated date of discharge: 02/22/18 - Constitutional Vitals: Temp Pulse Resp BP Pulse Ox 97.2 F L 61 17 98/64 96 02/22/18 06:38 02/22/18 06:38 02/22/18 06:38 02/22/18 06:38 02/22/18 02:44 General appearance: Present: A&O X 3, no acute distress Exam: General: Patient is alert, oriented x4, no acute distress. Head: atraumatic, normocephalic, Eye: normal appearance, PERRL, no scleral icterus, no conjunctival injection ENT: mucous membranes moist, normal external ear exam Neck: normal inspection, trachea midline, full ROM, no carotid bruits Respiratory: Clear to auscultation bilaterally, no wheezing, rales or crackles. Cardiovascular: RRR, normal s1 and s2, No rubs, gallops, or murmors. Abdomen: Obese, Bowel sounds present normoactive x-4 quadrants. Abdomen is soft , nondistended. No guarding or rebound. Musculoskeletal: Spontaneously moving all extremities. no edema, no calf tenderness Skin: warm, dry, intact. Neuro: Alert and oriented x4. Sensation light touch intact. Cranial nerves 2- 12 is intact. Not aphasic, rapid hand movements intact, [id number] intact, Psych: Patient's affect is normal - Patient Status Disposition: Home, Self-Care Condition: Good - Discharge Instructions Instructions: Diabetes Mellitus Type 2 in Adults (DC), Basic Carbohydrate Counting (DC), Meal Planning with the Plate Model (DC) Follow Up With: Lulu Mac MD [Primary Care Provider] - (Please call for a follow up appointment with in 1-2 weeks of discharge. You were discharged on a weekend so you will need to call on Saturday. ) Additional Instructions: Your medications were called into [facility]. Follow-up appointments: If there is not an appointment listed below, please call your physician and schedule a follow-up appointment. If you have congestive heart failure and your symptoms return, make an appointment with your physician. Medication List: Carry an up to date list of medications you are taking at all time. We have given you an updated medication list including any new medications that you have been prescribed. Please provide that list to your primary provider Symptoms: If your condition changes or you experience any of the following symptoms, notify your physician immediately: Unusual or worsening pain, fever, persistent nausea and vomiting, bleeding, increase in swelling (especially in your legs), sudden weight gain, extreme dizziness, chest pain, increased drainage or redness from a wound or incision. Go to the emergency department if you experience a problem with breathing. Weights: If you have a history of swelling or shortness of breath, weigh yourself daily and notify your physician if you have a weight gain of two or more pounds in one day or 5 or more pounds in a week. If you experience any of the warning signs for stroke: Sudden numbness or weakness of the face, arm or leg; especially on one side of the body, sudden confusion, trouble speaking or understanding, sudden trouble seeing in one or both eyes, sudden trouble walking, dizziness, loss of balance or coordination, sudden sever headache with no cause; Call 911 or go to the emergency room. Stroke is a medical emergency. Some risk factors for stroke: Age, cigarette smoking, diabetes, excessive alcohol consumption, family history , high blood pressure, overweight, physical inactivity, prior stroke, heart attack, diagnosis of carotid artery stenosis or other artery disease. If you smoke, STOP: Smoking or tobacco use significantly increases your risk of heart and lung disease. Your chance of disease greatly increases if you continue to smoke. For more information, call the [place] tobacco quit line for smoking cessation QUIT-NOW ( )
[2018-02-22] MEDS ORDERED: *HR* Metformin 500 MG TABLET PO SCH (17:00)
--- NOTE | 2018-02-22 23:02 | Electrocardiograph Report ---
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
[2018-02-23] MEDS ORDERED: LEVOTHYROXINE SODIUM 25 MCG PO SCH (09:00)
--- NOTE | 2018-02-23 21:50 | Electrocardiograph Report ---
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
== END 2018-02-22 11:22 | disposition home or self-care (01) ==
LOC: EMEROOARM 18:05 → 3BNU 18:05 → SUATTDRO 21:31 → 3BNU 21:58
PROVIDERS: ADMIT Internal Medicine; ATTEND Internal Medicine